=== PATIENT | male | born 1925 | race Caucasian/White ===

== ENCOUNTER 2016-05-14 09:29 | Emergency (ER) | payer MEDICARE ==
[~2016-05-14 09:29] MED LIST: Sodium Chloride 0.9% 1,000 ML BAG ONE; Sodium Chloride 0.9% 100 ML BAG ONE
[2016-05-14] MEDS ORDERED: Ondansetron HCl/PF 4 MG/2 ML Vial ONE (09:46)
[2016-05-14] MEDS ORDERED: Pantoprazole 40 MG VIAL ONE (10:29)
[2016-05-14 10:33] LABS: #Lymphocytes 0.9 thou/uL (1.20-3.40); #Monocytes 0.7 thou/uL (0.11-0.59); #Neutrophils 11.9 thou/uL (1.40-6.50); %Basophils 0.3 % (0.0-1.0); %Eosinophils 0.1 % (0.0-10.0); %Lymphocytes 6.6 % (21.0-51.0); %Monocytes 5.3 % (0.0-10.0); %Neutrophils 87.8 % (42.0-75.0); Hemoglobin 10.7 g/dL (14.0-18.0); Mean Corpuscular Hemoglobin 31.5 pg (27.0-31.0); Mean Corpuscular Volume 92.5 fl (80.0-94.0); Mean Platelet Volume 6.1 fL (7.4-10.4); Platelet Count 271 thou/uL (130-400); RBC Distribution Width 13.2 % (11.5-14.5); Red Blood Cell (RBC) Count 3.39 mill/uL (4.70-6.10); White Blood Cell (WBC) Count 13.5 thou/uL (4.8-10.8)
[2016-05-14 10:52] LABS: CKMB 0.4 ng/mL (0-6.6); Troponin I 0.012 ng/mL (< 0.028)
[2016-05-14 10:52] LABS: INR-International Normal Ratio 1.4; Prothrombin Time 17.3 SEC (12.0-14.7)
[2016-05-14 10:52] LABS: ALT (SGPT) 20 U/L (0-55); AST (SGOT) 24 U/L (5-34); Albumin 2.9 g/dL (3.4-4.8); Alkaline Phosphatase 44 U/L (40-150); Anion Gap 19 mmol/L (10-20); BUN (Urea Nitrogen) 87 mg/dL (8.4-25.7); Bilirubin, Total 0.6 mg/dL (0.2-1.2); Calc. Creatinine Clearance 0 mL/min (70-130); Calcium 9.4 mg/dL (7.8-10.44); Carbon Dioxide 27 mmol/L (23-31); Chloride 104 mmol/L (98-107); Estimated GFR-MDRD 50; Globulin 2.4 g/dL (2.4-3.5); Potassium 4.4 mmol/L (3.5-5.1); Protein, Total 5.3 g/dL (5.8-8.1); Sodium 146 mmol/L (136-145)
[2016-05-14 10:53] LABS: Glucose 161 mg/dL (83-110)
[2016-05-14 11:13] LABS: PTT 24.1 SEC (22.9-36.1)
--- NOTE | 2016-05-14 11:13 | RAD ---
PORTABLE UPRIGHT FRONTAL CHEST RADIOGRAPH 2 VIEWS OF THE ABDOMEN: Date: 05/14/16 COMPARISON: Two views of the chest dated 01/26/07 and KUB dated 04/23/16. HISTORY: Unable to stand, weakness, nausea and vomiting. FINDINGS: There is mild gaseous distention of the stomach on supine imaging with an air fluid level noted on t he upright view. Radiopaque material overlies the abdomen, suggesting prior hernia repair. Clips in the right upper quadrant noted suggesting prior cholecystectomy. The bowel gas pattern appears nonob structed. There does appear to be a significant amount of stool within the colon, particularly in t he descending colon and rectal region. There is atherosclerotic calcification of the abdominal aorta and its branches. Frontal radiograph chest demonstrates a curved area of hazy increased density in the right perihilar region and the right infrahilar region, which appears similar when compared to 01/26/07 examination . There is prominent medial pleural calcification within the right base. There is increased linear density laterally within the mid right lung zone, stable. Small bilateral pleural effusions are suspected. There is a rounded area of radiodensity overlying the inferior tip of the scapula on the right, probably representing pleural fluid within the fissure. IMPRESSION: 1. Probable small bilateral pleural effusions. This could be better evaluated with PA and lateral c hest imaging. 2. Mild distention of the stomach with an air fluid level seen on upright imaging. 3. No free intraperitoneal air. 4. No evidence for small bowel obstruction. Significant stool within the colon. POS: [facility]
[2016-05-14 11:36] LABS: Bilirubin Negative (Negative); Blood, Urine Trace (Negative); Glucose, Urine (Dipstick) Negative (Negative); Leukocyte Small (Negative); Nitrite Negative (Negative); Protein, Urine (Dipstick) Negative (Neg-Trace); Urobilinogen 0.2 mg/dL (0.2-1.0); pH, Urine 5.5 (5.0-9.0)
[2016-05-14 11:37] LABS: Clarity Hazy (Clear)
[2016-05-14 11:38] LABS: Bacteria/HPF 1+ HPF (None Seen); RBC/HPF 0-3 HPF (0-3); Yeast-All Forms 1+ HPF (None Seen)
--- NOTE | 2016-05-14 11:46 | RAD ---
1 VIEW CHEST: Date: 05/14/16 COMPARISON: 04/19/16. HISTORY: NG tube placement. FINDINGS: Suboptimal evaluation of lung parenchyma due to overpenetration. Chronic changes are suspected. Eval uation for pneumothorax and pleural effusion is limited. There is atherosclerosis of the aorta. Enla rged cardiac silhouette. There appears to be a nasogastric tube which extends beyond the diaphragm. Distal tip is presumed to be in the left upper quadrant, though it cannot be adequately assessed. IMPRESSION: Limited evaluation as above. Nasogastric tube does extend beyond the diaphragm. POS: [facility]
--- NOTE | 2016-05-14 12:13 | ERRECORD ---
[facility] EMERGENCY RECORD HPI NAUSEA/VOMITING/DIARRHEA (09:47 LHOD) CHIEF COMPLAINT: Patient presents for evaluation of nausea, Patient presents for evaluation of vomiting. HISTORIAN: Additional history obtained from shelter, Additional history obtained from EMS. TIME COURSE: PER REVIEW OF RECORDS, PT IN MID TO LATE April, HAD A SMALL BOWEL OBSTRUCTION WHICH RESOLVED WITH CONSERVATIVE MANAGEMENT. YESTERDAY ONSET OF VOMITING AGAIN. TODAY COFFEE GROUND / DARK MATERIAL. PT REPORTEDLY HAS ALSO RECENTLY BEEN ON LEVAQUIN FOR 2 WEEKS FOR PROSTATIS. ROS (09:49 LHOD) CONSTITUTIONAL: Historian denies fever. CARDIOVASCULAR: Historian denies chest pain. RESPIRATORY: Historian denies cough, denies shortness of breath. GI: Historian reports abdominal pain, reports appetite changes, reports vomiting. GENITOURINARY MALE: HX OF URINARY CATHS, BUT RECORDS SUGGEST THEY ARE TRYING SPONTANEOUS URINATION. SKIN: PERINEAL RASH. NEUROLOGIC: HEARING IMPAIRED WITH HEARING AIDS. NO FOCAL WEAKNESS. FULL ORIENTATION NOT TESTED YET. HEMO/LYMPHATIC: Historian reports easy bruising, HX OF TAKING ELIQUIS FOR AFIB. NOTES: All systems reviewed, negative except as described above. PAST MEDICAL HISTORY MEDICAL HISTORY: Notes: unk on immunizations, Notes: colon cancer in the prostate cancer in the hypotension, hypothryoid, Past medical history includes neurological disease, ischemic cerebral vascular accident, TIA 2007. 05/14/16. (10:08 ER) MALE SURGICAL HISTORY: COLON RESECTION BOWEL OBSTRUCTION, Surgical history of appendectomy, Surgical history of cholecystectomy. colon resection, bowel obstruction,, Surgical history of appendectomy, Surgical history of cholecystectomy. 05/14/16. (10:08 ER) PSYCHIATRIC HISTORY: No previous psychiatric history. (10:08 ER) SOCIAL HISTORY: Patient has no smoking history, Patient denies alcohol use, Patient denies drug use, Lives at home, alone. Patient denies alcohol use, Patient denies drug use, Patient has no smoking history. (10:08 ER) NOTES: Nursing records reviewed, ID RESIDENT, 2015 SEEN IN [facility] FOR SMALL BOWEL OBSTRUCTION, AFIB, PROSTATIS. (09:54 LHOD) KNOWN ALLERGIES Penicillins CURRENT MEDICATIONS &a-1R&a+25V*p+0X*[id number]*c202B*c15G*c2P*p-0X&a-25V&a+1R Name: Morgan Gage : 1925 M89 MedRec: [id number] AcctNum: [id number] Prepared: Verito May 14, 2016 12:23 by Interface Page 1 of 4 pMD [facility] EMERGENCY RECORD simvastatin: TABLET : Strength - 20 mg : ORAL Patient Dose: once a day (at bedtime). (10:27 ER) isosorbide mononitrate: TABLET : Strength - 10 mg : ORAL Patient Dose: 15 mg once a day (in the morning). (10: ER) levothyroxine: TABLET : Strength - 50 mcg : ORAL Patient Dose: once a day (in the morning). (10: ER) Aspir-81: TABLET, DELAYED RELEASE (ENTERIC COATED) : Strength - 81 mg : ORAL Patient Dose: Unknown. (: ER) multivitamin: TABLET : ORAL Patient Dose: 1 tab(s) Oral once a day. (: ER) Avodart: CAPSULE : Strength - 0.5 mg : ORAL Patient Dose: 1 cap(s) Oral once a day (at bedtime). (10:28 ER) Lasix: TABLET : Strength - 40 mg : ORAL Patient Dose: 1 tab(s) Oral once a day. (11:10 ER) Levaquin: TABLET : Strength - 500 mg : ORAL Patient Dose: 1 tab(s) Oral once a day. (11:10 ER) Miralax: POWDER (GRAM) : Strength - 17 gram/dose : ORAL Patient Dose: 1 cap(s) Oral. (11:11 ER) potassium chloride: TABLET, EXTENDED RELEASE : Strength - 10 mEq : ORAL Patient Dose: 1 tab(s) Oral once a day. (11:12 ER) tamsulosin: CAPSULE, EXT RELEASE 24 HR : Strength - 0.4 mg : ORAL Patient Dose: 1 cap(s) Oral once a day (at bedtime). (11:13 ER) Eliquis: TABLET : Strength - 2.5 mg : ORAL Patient Dose: 1 tab(s) Oral 2 times a day. (11:13 ER) Refresh Eye Itch Relief: DROPS : Strength - 0.025 % : OPHTHALMIC Patient Dose: 1 Drps Eyes Both 2 times a day. (11:14 ER) VITAL SIGNS VITAL SIGNS: BP: 105/52, Pulse: 83 (Irregular), Resp: 20, Time: 05/14/2016 10:00. (10:00 ER) BP: 107/72, Pulse: 140 (Irregular), Resp: 20, Temp: 98.4 (Rectal), Pain: 0, Time: 05/14/2016 09:39. (09:39 ER) BP: 120/89, Pulse: 106, Resp: 20, Pain: 0, O2 sat: 94 on 3L Oxygen, Time: 05/14/2016 11:00. (11:00 ER) BP: 109/55, Pulse: 106, Resp: 20, Pain: 0, O2 sat: 94 on 3L Oxygen, Time: &a-1R&a+25V*p+0X*[id number]*c202B*c15G*c2P*p-0X&a-25V&a+1R Name: Morgan Gage : 1925 M89 MedRec: [id number] AcctNum: [id number] Prepared: Verito May 14, 2016 12:23 by Interface Page 2 of 4 pMD [facility] EMERGENCY RECORD 05/14/2016 10:21. (10:21 ER) BP: 118/61, Pulse: 91, Resp: 20, Pain: 0, O2 sat: 94 on 2L Oxygen, Time: 05/14/2016 11:16. (11:16 ER) BP: 99/57, Pulse: 98, Resp: 20, Temp: 97. (Tympanic), Pain: 0, O2 sat: 94 on 2L Oxygen, Time: 05/14/2016 11:38. (11:38 ER) PHYSICAL EXAM (09:52 LHOD) CONSTITUTIONAL: Vital signs reviewed, Patient afebrile, Pulse, tachycardic, Blood pressure normal, Respiratory rate normal, AWAKE, ALERT, C/O BEING COLD. HEAD: Head exam included findings of head atraumatic. EYES: Pupils equally round and reactive to light, Extraocular muscles intact. ENT: Teeth with, EDENTULOUS, DARK MATERIAL ON CHIN. RESPIRATORY CHEST: Respiratory exam included findings of no respiratory distress, Breath sounds clear. CARDIOVASCULAR: Cardiovascular exam included findings of, rate tachycardic, rhythm irregularly irregular, DISTANT HEART SOUNDS. ABDOMEN MALE: Abdominal exam included findings of abdomen tender, diffusely, moderate intensity, Bowel sounds, absent, Distension present, MILD DISTENTION, PASSING SOFT BROWN STOOL, GUAIAC NEGATIVE. BACK: Back exam normal. UPPER EXTREMITY: Upper extremity exam normal. LOWER EXTREMITY: Lower extremity exam normal. NEURO: AWAKE, ALERT. SKIN: ERYTHEMATOUS / CHAFFING OF PERINEUM. EKG INTERPRETATION (09:59 LHOD) 12 LEAD EKG INTERPRETATION: 12 lead EKG interpreted by Emergency Department Physician at time of study, 12 lead EKG shows, atrial fibrillation with rapid ventricular response, Rate (beats per minute): 147, with no ectopics, T waves, flattened, DIFFUSE FLATTENING OF T WAVE WITH NON-SPEC ST, [place] normal. RADIOLOGYINTERPRETATION (10:23 LHOD) ABDOMEN: Obstructive series films show, Other findings: RIGHT PERIHILAR MASS APPEARS LARGER THAN DEC., AIRFLUID LEVELS UPPER BOWEL., RADIOLOGY READING DOES NOT SUGGEST THEY BELIEVE INCREASED SIZE OF RIGHT PERIHILUM. MEDICATION ADMINISTRATION SUMMARY Drug Name: Fortaz intravenous, Dose Ordered: 2 g, Route: IV Piggy Back, Status: Canceled, Time: 11:25 05/14/2016, Drug Name: *Normal Saline, Dose Ordered: 300 mL, Route: IV Fluid &a-1R&a+25V*p+0X*[id number]*c202B*c15G*c2P*p-0X&a-25V&a+1R Name: Morgan Gage : 1925 M89 MedRec: [id number] AcctNum: [id number] Prepared: [facility] May 14, 2016 12:23 by Interface Page 3 of 4 pMD [facility] EMERGENCY RECORD Infusion, Status: Ordered, Time: 11:00 05/14/2016, Drug Name: *Normal Saline, Dose Ordered: 300 mL, Route: IV Fluid Infusion, Status: Given, Time: 10:37 05/14/2016, Drug Name: Protonix intravenous, Dose Ordered: 40 mg, Route: IV Push, Status: Given, Time: 10:34 05/14/2016, Drug Name: diltiazem intravenous, Dose Ordered: 10 mg, Route: IV Push, Status: Given, Time: 10:00 05/14/2016, Drug Name: Zofran intravenous, Dose Ordered: 8 mg, Route: IV Push, Status: Given, Time: 09:55 05/14/2016, Drug Name: *Normal Saline, Dose Ordered: 300 mL, Route: IV Fluid Infusion, Status: Given, Time: 09:50 05/14/2016, *Additional information available in notes, Detailed record available in Medication Service section. DOCTOR NOTES (11:19 LHOD) TEXT: FAMILY REQUEST AT [facility]---CONSULTANTS DR. VALENTIN AND . PROBLEM LIST No recorded problems DIAGNOSIS (11:23 LHOD) FINAL: PRIMARY: UPPER GI BLEED WITH ANEMIA, ADDITIONAL: ATRIAL FIBRILLATION, Lactic acidosis, RENAL INSUFFICIENCY. PRESCRIPTION No recorded prescriptions DISPOSITION PATIENT: Disposition Type: Transfer, Disposition: Transfer to [facility], Condition: Good. (11:12 LHOD) Patient left the department. (12:07 ER) [place]: ER=Marycarmen Moore LHOD=MD Danae, Sherif &a-1R&a+25V*p+0X*r1942P*c202B*c15G*c2P*p-0X&a-25V&a+1R Name: Morgan Gage : 1925 M89 MedRec: [id number] AcctNum: [id number] Prepared: Verito May 14, 2016 12:23 by Interface Page 4 of 4 pMD MTDD
--- NOTE | 2016-05-14 12:19 | PICIS ---
[facility] EMERGENCY RECORD COMMUNICATIONS (10:56 LHOD) COMMUNICATIONS: Notes: 1055--FAMILY REQUEST AND OF [facility]. 1110---DISCUSSED WITH DR. POND, [facility] EDMD, ACCEPTS FOR TRANSFER. TRIAGE (09:38 ER) TRIAGE NOTES: vomiting, coffee brown emesis, since yesterday, from care center. (09:38 ER) PATIENT: NAME: Morgan Gage, AGE: 89, GENDER: male, : [id number], TIME OF GREET: WedMay 14, 2016 09:30, PREFERRED LANGUAGE: Greenlandic, ETHNICITY: Not or , ECODE BILLING MAP: [facility], SSN: [id number], Zip Code: [address], KG WEIGHT: 62.60, PHONE: , , , PERSON ID: [id number], PCP: Mirian WHITLOCK AUBREY. (09:38 ER) COMPLAINT: WEAKNESS. (09:38 ER) ADMISSION: URGENCY: 2 Emergent, ADMISSION SOURCE: [facility], TRANSPORT: AMBULANCE - [facility], BED: TRIAGE. (09:38 ER) SIRS SCORING: Heart Rate 140-179 (3), Temp range 96.8-101.1 (0), respiratory rate 12-24 (0), Mental Status altered: no (0). (10:08 ER) TRIAGE SCREENING: Patient denies suicidal ideation, Patient denies presence of domestic violence. (10:08 ER) PROVIDERS: TRIAGE NURSE: Marycarmen Moore. (:38 ER) PREVIOUS VISIT ALLERGIES: Penicillins. (09:38 ER) Penicillins. (10:08 ER) KNOWN ALLERGIES Penicillins CURRENT MEDICATIONS simvastatin: TABLET : Strength - 20 mg : ORAL Patient Dose: once a day (at bedtime). (10:27 ER) isosorbide mononitrate: TABLET : Strength - 10 mg : ORAL Patient Dose: 15 mg once a day (in the morning). (10:27 ER) levothyroxine: TABLET : Strength - 50 mcg : ORAL Patient Dose: once a day (in the morning). (10:27 ER) Aspir-81: TABLET, DELAYED RELEASE (ENTERIC COATED) : Strength - 81 mg : ORAL Patient Dose: Unknown. (10:27 ER) multivitamin: TABLET : ORAL Patient Dose: 1 tab(s) Oral once a day. (10:27 ER) Avodart: CAPSULE : Strength - 0.5 mg : ORAL Patient Dose: 1 cap(s) Oral once a day (at bedtime). (10:28 ER) &a-1R&a+25V*p+0X*g4107I*c202B*c15G*c2P*p-0X&a-25V&a+1R Name: Morgan Gage : 1925 M89 MedRec: [id number] AcctNum: [id number] Prepared: Verito May 14, 2016 12:28 by Interface Page 1 of 15 pMD [facility] EM[facility]GENCY RECORD Lasix: TABLET : Strength - 40 mg : ORAL Patient Dose: 1 tab(s) Oral once a day. (11:10 ER) Levaquin: TABLET : Strength - 500 mg : ORAL Patient Dose: 1 tab(s) Oral once a day. (11:10 ER) Miralax: POWDER (GRAM) : Strength - 17 gram/dose : ORAL Patient Dose: 1 cap(s) Oral. (11:11 ER) potassium chloride: TABLET, EXTENDED RELEASE : Strength - 10 mEq : ORAL Patient Dose: 1 tab(s) Oral once a day. (11:12 ER) tamsulosin: CAPSULE, EXT RELEASE 24 HR : Strength - 0.4 mg : ORAL Patient Dose: 1 cap(s) Oral once a day (at bedtime). (11:13 ER) Eliquis: TABLET : Strength - 2.5 mg : ORAL Patient Dose: 1 tab(s) Oral 2 times a day. (11:13 ER) Refresh Eye Itch Relief: DROPS : Strength - 0.025 % : OPHTHALMIC Patient Dose: 1 Drps Eyes Both 2 times a day. (11:14 ER) VITAL SIGNS VITAL SIGNS: BP: 105/52, Pulse: 83 (Irregular), Resp: 20, Time: 05/14/2016 10:00. (10:00 ER) BP: 107/72, Pulse: 140 (Irregular), Resp: 20, Temp: 98.4 (Rectal), Pain: 0, Time: 05/14/2016 09:39. (09:39 ER) BP: 120/89, Pulse: 106, Resp: 20, Pain: 0, O2 sat: 94 on 3L Oxygen, Time: 05/14/2016 11:00. (11:00 ER) BP: 109/55, Pulse: 106, Resp: 20, Pain: 0, O2 sat: 94 on 3L Oxygen, Time: 05/14/2016 10:21. (10:21 ER) BP: 118/61, Pulse: 91, Resp: 20, Pain: 0, O2 sat: 94 on 2L Oxygen, Time: 05/14/2016 11:16. (11:16 ER) BP: 99/57, Pulse: 98, Resp: 20, Temp: 97. (Tympanic), Pain: 0, O2 sat: 94 on 2L Oxygen, Time: 05/14/2016 11:38. (11:38 ER) NURSING ASSESSMENT: ABDOMEN (10:10 ER) CONSTITUTIONAL: Patient arrives, via [facility], History obtained from, alf record, CALLED AND SPOKE WITH PRISON, Patient appears comfortable, Patient cooperative, Patient alert, Oriented to person, place and time, Skin warm, Skin dry, Skin normal in color, Patient complains of VOMITING, NONE AT THIS TIME, PER PRISON STAFF, PT VOMITING SINCE LAST NIGHT , 3 TIMES THIS MORNING, PT HAS DRIED BROWN EMESIS ON LIPS. PAIN: Patient rates pain as 0 out of 10. ABDOMEN: Abdomen assessment findings include abdomen symmetrical, Abdomen soft, tender, to the left upper quadrant, Associated with nausea, Associated with vomiting, &a-1R&a+25V*p+0X*g8997V*c202B*c15G*c2P*p-0X&a-25V&a+1R Name: Morgan Gage : 1925 M89 MedRec: [id number] AcctNum: [id number] Prepared: Verito May 14, 2016 12:28 by Interface Page 2 of 15 pMD [facility] EM[facility]GENCY RECORD history of vomiting, having coffee ground emesis, no associated diarrhea, no associated constipation, Date of last bowel movement: TODAY, DURING RECTAL TEMP. SAFETY: Side rails up, Cart/Stretcher in lowest position, Call light within reach, Hospital ID band on. NURSING ASSESSMENT: FALL RISK (10:14 ER) FALL RISK: Use of level of consciousness altering agents with mentation or cognitive changes (3), Sensory deficits (1), Impaired mobility (3), Total score 7, Notes: PT IS WEAK FROM VOMITING. [place] II FALL RISK: altered elimination(1), male(1), Total score 2. NURSING ASSESSMENT: SKIN (10:14 ER) SKIN: Skin assessment findings include skin warm, Skin dry, Skin normal in color, Notes: PT HAS BLANCHABLE REDNESS TO SACRUM AREA WITH 1/2INCH BREAKDOWN ON THE LEFT INNER BUTTOCKS. SAFETY: Side rails up, Cart/Stretcher in lowest position, Call light within reach, Hospital ID band on. NURSING PROCEDURE: BEDSIDE RADIOLOGY (11:35 ER) PATIENT IDENTIFIER: Patient actively involved in identification process. BEDSIDE RADIOLOGY: Portable chest x-ray performed. NURSING PROCEDURE: BEDSIDE SIRS TESTING (11:15 ER) SCORES: Heart Rate 55-109 (0), Temp range 96.8-101.1 (0), respiratory rate 12-24 (0), Latest WBC 3-14.9 (0), Mental Status altered: no (0). NURSING PROCEDURE: ASSISTANT FAMILY TEACHER (09:42 ER) PATIENT IDENTIFIER: Patient actively involved in identification process, Patient's identity verified by patient stating name, Patient's identity verified by patient stating date. ASSISTANT FAMILY TEACHER: Cardiac monitoring indicated for vomitimg, afib, Patient placed on monitoring and evaluation advisor, Heart rate: 150, showing atrial fibrillation, Patient placed on non-invasive blood pressure monitor, Patient placed on continuous pulse oximetry. NURSING PROCEDURE: EKG CHART (09:54 ER) PATIENT IDENTIFIER: Patient actively involved in identification process, Patient's identity verified by patient stating name, Patient's identity verified by patient stating date. EKG: EKG indicated for complaint of an irregular heart beat, 12 lead EKG performed on the left chest, done by SAL FAJARDO. NURSING PROCEDURE: GASTRIC TUBE (11:31 ER) PATIENT IDENTIFIER: Patient actively involved in identification process, Patient's identity verified by patient stating name, &a-1R&a+25V*p+0X*x4767T*c202B*c15G*c2P*p-0X&a-25V&a+1R Name: Morgan Gage : 1925 M89 MedRec: [id number] AcctNum: [id number] Prepared: Verito May 14, 2016 12:28 by Interface Page 3 of 15 pMD [facility] EM[facility]GENCY RECORD Patient's identity verified by patient stating date. GASTRIC TUBE: Gastric tube indicated for possible gastrointestinal bleed, 14fr gastric tube inserted, Gastric tube to low intermittent suction, Notes: xray ordered for placement, + gargling heard the stethoscope, and brown emesis out put. NURSING PROCEDURE: IV (09:50 ER) PATIENT IDENITIFIER: Patient actively involved in identification process, Patient's identity verified by patient stating name, Patient's identity verified by patient stating date. IV SITE 1: IV therapy indicated for medication administration, IV established, to the right antecubital, using a 20 gauge catheter, in one attempt, Saline lock established, Labs drawn at time of placement, labeled in the presence of the patient and sent to lab, Notes: saline lock by BRIAN FAJARDO HOUSESUPERVISOR. SAFETY: Side rails up, Cart/Stretcher in lowest position, Call light within reach, Hospital ID band on. NURSING PROCEDURE: NURSE NOTES NURSES NOTES: Notes: ems at bedside. (11:24 ER) Notes: pt out the door, to [facility], PT A/OX4, NO COMPLAINTS OF PAIN, NG TUBE CLAMPED, BETTS CATHETER EMPTIED. FAMILY AT BEDSIDE,. (11:47 ER) Notes: REPORT TO RICHARDSON RN. (12:06 ER) NURSING PROCEDURE: TRANSFER (11:10 ER) TRANSFER: Reason for transfer need for specialized care, Diagnosis: UPPER GI BLEED, Accepting institution: [facility], Accepting physician: SALTY, Referring physician: GASTON, Transported by urgent ambulance, Patient consent for transfer signed, Family member contacted, SON ELIZABETH AND DAUGHTER, Notes: FAMILY CONSENTED FOR TRANSFER. BELONGINGS: Belongings remain with patient, Valuables remain with patient. SAFETY: Side rails up, Cart/Stretcher in lowest position, Family at bedside, Call light within reach, Hospital ID band on. NURSING PROCEDURE: TRANSPORT TO TESTS PATIENT IDENTIFIER: Patient actively involved in identification process, Patient's identity verified by patient stating name, Patient's identity verified by patient stating date. (10:03 ER) TRANSPORT TO TESTS: Patient transported to x-ray, via cart, Accompanied by x-ray furniture repair technician. (10:03 ER) FOLLOW-UP: After procedure, patient returned to emergency department. (10:18 ER) NURSING PROCEDURE: URINE COLLECTION PATIENT IDENTIFIER: Patient actively involved in identification process, Patient's identity verified by patient stating name, Patient's identity verified by patient stating date. (11:00 ER) &a-1R&a+25V*p+0X*e2676F*c202B*c15G*c2P*p-0X&a-25V&a+1R Name: Morgan Gage : 1925 M89 MedRec: [id number] AcctNum: [id number] Prepared: [facility] May 14, 2016 12:28 by Interface Page 4 of 15 pMD [facility] EM[facility]GENCY RECORD URINE COLLECTION MALE: Coude catheter inserted, using a 14 fr coude catheter, in two attempts, output amount (mL) 100ml, urine hernán in color. (11:00 ER) FOLLOW UP: Total output (ml) 550, Total urine output (ml) 560. (11:45 ER) SAFETY: Side rails up, Cart/Stretcher in lowest position, Family at bedside, Call light within reach, Hospital ID band on. (11:00 ER) Side rails up, Cart/Stretcher in lowest position, Family at bedside, Call light within reach, Hospital ID band on. (11:45 ER) ORDER DETAILS Order Name: ASSISTANT FAMILY TEACHER ED, Status: Done, Time: 09:42 05/14/2016, User: ER, - Ordered for: MD Fink Lefayne, - Entered by: MD Fink Lefayne - [facility] May 14, 2016 09:41, - Quantity: 1, Order Name: Cardiac Profile w/CKMB & Troponin - I, Status: Active, Time: 10:12 05/14/2016, User: JOVAN, - Ordered for: MD Fink Lefayne, - Entered by: MD Fink Lefayne - [facility] May 14, 2016 10:12, - Quantity: 1, Order Name: CBC with Differential, Status: Active, Time: 09:41 05/14/2016, User: JOVAN, - Ordered for: MD Fink Lefayne, - Entered by: MD Fink Lefayne - [facility] May 14, 2016 09:41, - Quantity: 1, Order Name: Comprehensive Metabolic Panel, Status: Active, Time: 09:41 05/14/2016, User: JOVAN, - Ordered for: MD Fink Lefayne, - Entered by: MD Fink Lefayne - [facility] May 14, 2016 09:41, - Quantity: 1, Order Name: Culture, Blood, Status: Active, Time: 10:51 05/14/2016, User: JOVAN, - Ordered for: MD Fink Lefayne, - Entered by: MD Fink Lefayne - [facility] May 14, 2016 10:51, - Quantity: 1, Order Name: Culture, Urine, Status: Active, Time: 11:46 05/14/2016, User: JOVAN, - Ordered for: MD Fink Lefayne, - Entered by: MD Fink Lefayne - [facility] May 14, 2016 11:46, - Quantity: 1, Order Name: EKG 12 Lead in Emergency Room, Status: Active, Time: 09:41 05/14/2016, User: JOVAN, - Ordered for: MD Fink Lefayne, - Entered by: MD Fink Lefayne - [facility] May 14, 2016 09:41, - Quantity: 1, Order Name: BETTS CATHETER ED, Status: Done, Time: 10:59 05/14/2016, User: ER, - Ordered for: MD Fink Lefayne, &a-1R&a+25V*p+0X*o8468Z*c202B*c15G*c2P*p-0X&a-25V&a+1R Name: Morgan Gage : 1925 M89 MedRec: [id number] AcctNum: [id number] Prepared: WedMay 14, 2016 12:28 by Interface Page 5 of 15 pMD [facility] EM[facility]GENCY RECORD - Entered by: MD Fink Lefayne - [facility] May 14, 2016 09:41, - Quantity: 1, Order Name: Lactic Acid, Status: Active, Time: 09:42 05/14/2016, User: JOVAN, - Ordered for: MD Fink Lefayne, - Entered by: MD Fink Lefayne - [facility] May 14, 2016 09:42, - Quantity: 1, Order Name: NG TUBE PLACEMENT ED, Status: Done, Time: 11:30 05/14/2016, User: ER, - Ordered for: MD Fink Lefayne, - Entered by: MD Fink Lefayne - [facility] May 14, 2016 11:01, - Quantity: 1, Order Name: Protime with INR, Status: Active, Time: 10:40 05/14/2016, User: JOVAN, - Ordered for: MD Fink Lefayne, - Entered by: MD Fink Lefayne - [facility] May 14, 2016 10:40, - Quantity: 1, Order Name: PTT, Status: Active, Time: 10:40 05/14/2016, User: JOVAN, - Ordered for: MD Fink Lefayne, - Entered by: MD Fink Lefayne - [facility] May 14, 2016 10:40, - Quantity: 1, Order Name: SALINE LOCK, Status: Done, Time: 10:08 05/14/2016, User: ER, - Ordered for: MD Fink Lefayne, - Entered by: MD Fink Lefayne [facility] May 14, 2016 09:41, - Quantity: 1, Order Name: Urinalysis w/ Rflx Microscopic, Status: Canceled, Time: 11:01 05/14/2016, User: ER, - Ordered for: MD Fink Lefayne, - Entered by: MD Fink Lefayne [facility] May 14, 2016 09:42, - Reason for Cancel: -- Reason --, - Quantity: 1, Order Name: Urinalysis w/ Rflx Microscopic, Status: Active, Time: 11:18 05/14/2016, User: JOVAN, - Ordered for: MD Fink Lefayne, - Entered by: MD Fink Lefayne - [facility] May 14, 2016 11:18, - Quantity: 1, Order Name: XR Abdomen 2 View/1 View Cxr, Status: Active, Time: 09:44 05/14/2016, User: LHOD, - Ordered for: MD Fink Lefayne, - Entered by: MD Fink Lefayne - [facility] May 14, 2016 09:44, - Quantity: 1, Order Name: XR Chest 1 View Portable, Status: Active, Time: 11:30 05/14/2016, User: JOVAN, - Ordered for: MD Fink Lefayne, - Entered by: MD Fink Lefayne - [facility] May 14, 2016 11:30, - Quantity: 1. MEDICATION ADMINISTRATION SUMMARY &a-1R&a+25V*p+0X*z2424S*c202B*c15G*c2P*p-0X&a-25V&a+1R Name: Morgan Gage : 1925 M89 MedRec: [id number] AcctNum: [id number] Prepared: [facility] May 14, 2016 12:28 by Interface Page 6 of 15 pMD [facility] EM[facility]GENCY RECORD Drug Name: Fortaz intravenous, Dose Ordered: 2 g, Route: IV Piggy Back, Status: Canceled, Time: 11:25 05/14/2016, Drug Name: *Normal Saline, Dose Ordered: 300 mL, Route: IV Fluid Infusion, Status: Ordered, Time: 11:00 05/14/2016, Drug Name: *Normal Saline, Dose Ordered: 300 mL, Route: IV Fluid Infusion, Status: Given, Time: 10:37 05/14/2016, Drug Name: Protonix intravenous, Dose Ordered: 40 mg, Route: IV Push, Status: Given, Time: 10:34 05/14/2016, Drug Name: diltiazem intravenous, Dose Ordered: 10 mg, Route: IV Push, Status: Given, Time: 10:00 05/14/2016, Drug Name: Zofran intravenous, Dose Ordered: 8 mg, Route: IV Push, Status: Given, Time: 09:55 05/14/2016, Drug Name: *Normal Saline, Dose Ordered: 300 mL, Route: IV Fluid Infusion, Status: Given, Time: 09:50 05/14/2016, *Additional information available in notes, Detailed record available in Medication Service section. MEDICATION SERVICE diltiazem intravenous: Order: diltiazem intravenous (diltiazem HCl) - Dose: 10 mg : IV Push Ordered by: Sherif Fink MD Entered by: Sherif Fink MD [facility] May 14, 2016 09:43 , Acknowledged by: Marycarmen Moore [facility] May 14, 2016 09:43 Documented as given by: Marycarmen Moore [facility] May 14, 2016 10:00 Patient, Medication, Dose, Route and Time verified prior to administration. Amount given: 10mg, IV SITE #1 IVP, initial medication, Slowly, Pre-administration assessment shows Patient on monitoring and evaluation advisor showing atrial fibrillation, Awake and alert- acceptable, Catheter placement confirmed via flush prior to administration, IV site without signs or symptoms of infiltration during medication administration, No swelling during administration, No drainage during administration, IV flushed after administration, Correct patient, time, route, dose and medication confirmed prior to administration, Patient advised of actions and side-effects prior to administration, Allergies confirmed and medications reviewed prior to administration. : Follow Up : Response assessment performed, No signs or symptoms of allergic reaction noted, Decreased symptoms, _IV SITE #1:_. (10:30 ER) Normal Saline: Order: Normal Saline (0.9 % sodium chloride) - Dose: 300 mL : IV Fluid Infusion Notes: BOLUS, THEN 150 ML/HR Ordered by: Sherif Fink MD Entered by: Sherif Fink MD [facility] May 14, 2016 09:40 , Acknowledged by: Marycarmen Moore [facility] May 14, 2016 09:43 Documented as given by: Marycarmen Moore [facility] May 14, 2016 09:50 Patient, Medication, Dose, Route and Time verified prior to administration. Amount given: 300ml, IV SITE #1 IV fluids established for hydration, IV SITE #1 1st bag hung, amount 500ml hung, IV SITE #1 bolus of 300 &a-1R&a+25V*p+0X*d1295M*c202B*c15G*c2P*p-0X&a-25V&a+1R Name: Morgan Gage [place] : 1925 M89 MedRec: [id number] AcctNum: [id number] Prepared: Verito May 14, 2016 12:28 by Interface Page 7 of 15 pMD [facility] EM[facility]GENCY RECORD ml established, via primary tubing, via gravity tubing, Catheter placement confirmed via flush prior to administration, IV site without signs or symptoms of infiltration during medication administration, No swelling during administration, No drainage during administration, IV flushed after administration, Correct patient, time, route, dose and medication confirmed prior to administration, Patient advised of actions and side-effects prior to administration, Allergies confirmed and medications reviewed prior to administration. : Follow Up : Response assessment performed, No signs or symptoms of allergic reaction noted, _IV SITE #1:_, Medication infusion discontinued, on Verito May 14, 2016 10:37, 50 minutes, ., Total amount infused: 300ml. (10:35 ER) Normal Saline: Order: Normal Saline (0.9 % sodium chloride) - Dose: 300 mL : IV Fluid Infusion Notes: REPEAT BOLUS, THEN 150 ML/HR Ordered by: Sherif Fink MD Entered by: Sherif Fink MD [facility] May 14, 2016 10:31 , Acknowledged by: Marycarmen Moore [facility] May 14, 2016 10:35 Documented as given by: Marycarmen Moore [facility] May 14, 2016 10:37 Patient, Medication, Dose, Route and Time verified prior to administration. Amount given: 300ML, IV SITE #1 IV fluids established for hydration, via primary tubing, via gravity tubing, Awake and alert- acceptable, Catheter placement confirmed via flush prior to administration, IV site without signs or symptoms of infiltration during medication administration, No swelling during administration, No drainage during administration, IV flushed after administration, Correct patient, time, route, dose and medication confirmed prior to administration, Patient advised of actions and side-effects prior to administration, Allergies confirmed and medications reviewed prior to administration, Patient in position of comfort, Side rails up, Cart in lowest position, Family at bedside. Normal Saline: Order: Normal Saline (0.9 % sodium chloride) - Dose: 300 mL : IV Fluid Infusion Notes: BOLUS REMAINDER OF LITER Ordered by: Sherif Fink MD Entered by: Sherif Fink MD [facility] May 14, 2016 11:00 , Acknowledged by: Marycarmen Moore [facility] May 14, 2016 11:02. Protonix intravenous: Order: Protonix intravenous (pantoprazole sodium) - Dose: 40 mg : IV Push Ordered by: Sherif Fink MD Entered by: Sherif Fink MD [facility] May 14, 2016 09:46 , Acknowledged by: Marycarmen Moore [facility] May 14, 2016 10:07 Documented as given by: Marycarmen Moore [facility] May 14, 2016 10:34 Patient, Medication, Dose, Route and Time verified prior to administration. Amount given: 40MG, IV SITE #1 IVPB or drip, initial infusion, IVPB mixed in: 100ml, Fluid: 0.9NS, Awake and alert- acceptable, Catheter placement confirmed via flush prior to administration, IV site without signs or symptoms of infiltration during medication &a-1R&a+25V*p+0X*s8193W*c202B*c15G*c2P*p-0X&a-25V&a+1R Name: Morgan Gage : 1925 M89 MedRec: [id number] AcctNum: [id number] Prepared: [facility] May 14, 2016 12:28 by Interface Page 8 of 15 pMD [facility] EM[facility]GENCY RECORD administration, No swelling during administration, No drainage during administration, IV flushed after administration, Correct patient, time, route, dose and medication confirmed prior to administration, Patient advised of actions and side-effects prior to administration, Allergies confirmed and medications reviewed prior to administration, Patient in position of comfort, Side rails up, Cart in lowest position, Family at bedside. : Follow Up : Response assessment performed, No signs or symptoms of allergic reaction noted. (11:00 ER) Zofran intravenous: Order: Zofran intravenous (ondansetron HCl) - Dose: 8 mg : IV Push Ordered by: Sherif Fink MD Entered by: Sherif Fink MD [facility] May 14, 2016 09:40 , Acknowledged by: Marycarmen Moore [facility] May 14, 2016 09:43 Documented as given by: Marycarmen Moore [facility] May 14, 2016 09:55 Patient, Medication, Dose, Route and Time verified prior to administration. Amount given: 8mg, IV SITE #1 IVP, initial medication, Slowly, Awake and alert- acceptable, Catheter placement confirmed via flush prior to administration, IV site without signs or symptoms of infiltration during medication administration, No swelling during administration, No drainage during administration, IV flushed after administration, Correct patient, time, route, dose and medication confirmed prior to administration, Patient advised of actions and side-effects prior to administration, Allergies confirmed and medications reviewed prior to administration. : Follow Up : Response assessment performed, No signs or symptoms of allergic reaction noted, Decreased nausea, _IV SITE #1:_. (11:00 ER) (CANCELED) Fortaz intravenous: Order: Fortaz intravenous (ceftazidime pentahydrate) - Dose: 2 g : IV Piggy Back POTENTIAL ALLERGY REACTION: 'Penicillins' - Benefits outweigh risks Ordered by: Sherif Fink MD Entered by: Sherif Fink MD [facility] May 14, 2016 11:02 , Acknowledged by: Marycarmen Moore [facility] May 14, 2016 11:02 Canceled by: Brian Mayen RN. [facility] May 14, 2016 11:25 Cancel reason: Change in medication plan:we do not carry this drug. Dr Fink requests to just let him wait until he gets to [place]... HPI NAUSEA/VOMITING/DIARRHEA (09:47 LHOD) CHIEF COMPLAINT: Patient presents for evaluation of nausea, Patient presents for evaluation of vomiting. HISTORIAN: Additional history obtained from alf, Additional history obtained from EMS. TIME COURSE: PER REVIEW OF RECORDS, PT IN MID TO LATE April, HAD A SMALL BOWEL OBSTRUCTION WHICH RESOLVED WITH CONSERVATIVE MANAGEMENT. YESTERDAY ONSET OF VOMITING AGAIN. TODAY COFFEE GROUND / DARK MATERIAL. PT REPORTEDLY HAS ALSO RECENTLY BEEN ON LEVAQUIN FOR 2 WEEKS FOR PROSTATIS. &a-1R&a+25V*p+0X*g2534V*c202B*c15G*c2P*p-0X&a-25V&a+1R Name: Morgan Gage : 1925 M89 MedRec: [id number] AcctNum: [id number] Prepared: Verito May 14, 2016 12:28 by Interface Page 9 of 15 pMD [facility] EMERGENCY RECORD ROS (09:49 LHOD) CONSTITUTIONAL: Historian denies fever. CARDIOVASCULAR: Historian denies chest pain. RESPIRATORY: Historian denies cough, denies shortness of breath. GI: Historian reports abdominal pain, reports appetite changes, reports vomiting. GENITOURINARY MALE: HX OF URINARY CATHS, BUT RECORDS SUGGEST THEY ARE TRYING SPONTANEOUS URINATION. SKIN: PERINEAL RASH. NEUROLOGIC: HEARING IMPAIRED WITH HEARING AIDS. NO FOCAL WEAKNESS. FULL ORIENTATION NOT TESTED YET. HEMO/LYMPHATIC: Historian reports easy bruising, HX OF TAKING ELIQUIS FOR AFIB. NOTES: All systems reviewed, negative except as described above. PAST MEDICAL HISTORY MEDICAL HISTORY: Notes: unk on immunizations, Notes: colon cancer in the prostate cancer in the hypotension, hypothryoid, Past medical history includes neurological disease, ischemic cerebral vascular accident, TIA 2007. 05/14/16. (10:08 ER) MALE SURGICAL HISTORY: COLON RESECTION BOWEL OBSTRUCTION, Surgical history of appendectomy, Surgical history of cholecystectomy. colon resection, bowel obstruction,, Surgical history of appendectomy, Surgical history of cholecystectomy. 05/14/16. (10:08 ER) PSYCHIATRIC HISTORY: No previous psychiatric history. (10:08 ER) SOCIAL HISTORY: Patient has no smoking history, Patient denies alcohol use, Patient denies drug use, Lives at home, alone. Patient denies alcohol use, Patient denies drug use, Patient has no smoking history. (10:08 ER) NOTES: Nursing records reviewed, [place] RESIDENT, 2015 SEEN IN [facility] FOR SMALL BOWEL OBSTRUCTION, AFIB, PROSTATIS. (09:54 LHOD) PHYSICAL EXAM (09:52 LHOD) CONSTITUTIONAL: Vital signs reviewed, Patient afebrile, Pulse, tachycardic, Blood pressure normal, Respiratory rate normal, AWAKE, ALERT, C/O BEING COLD. HEAD: Head exam included findings of head atraumatic. EYES: Pupils equally round and reactive to light, Extraocular muscles intact. ENT: Teeth with, EDENTULOUS, DARK MATERIAL ON CHIN. RESPIRATORY CHEST: Respiratory exam included findings of no respiratory distress, Breath sounds clear. CARDIOVASCULAR: Cardiovascular exam included findings of, rate tachycardic, rhythm irregularly irregular, DISTANT HEART SOUNDS. &a-1R&a+25V*p+0X*b4403E*c202B*c15G*c2P*p-0X&a-25V&a+1R Name: Morgan Gage : 1925 M89 MedRec: [id number] AcctNum: [id number] Prepared: [facility] May 14, 2016 12:28 by Interface Page 10 of 15 pMD [facility] EMERGENCY RECORD ABDOMEN MALE: Abdominal exam included findings of abdomen tender, diffusely, moderate intensity, Bowel sounds, absent, Distension present, MILD DISTENTION, PASSING SOFT BROWN STOOL, GUAIAC NEGATIVE. BACK: Back exam normal. UPPER EXTREMITY: Upper extremity exam normal. LOWER EXTREMITY: Lower extremity exam normal. NEURO: AWAKE, ALERT. SKIN: ERYTHEMATOUS / CHAFFING OF PERINEUM. LAB INTERPRETATION (10:39 LHOD) INTERPRETATION: I reviewed the lab results, CBC abnormal, White blood cell count elevated, Hemoglobin decreased, Hematocrit decreased, Chemistry abnormal, Glucose elevated, BUN elevated, Creatinine elevated, Lactate abnormal-elevated, elevated. EVENTS TRANSFER: Triage to Emergency Triage. (WedMay 14, 2016 09:38 ER) Emergency Triage to Main ED -01. (09:38 ER) Removed from Emergency Main ED -01. (12:07 ER) RADIOLOGYINTERPRETATION (10:23 LHOD) ABDOMEN: Obstructive series films show, Other findings: RIGHT PERIHILAR MASS APPEARS LARGER THAN DEC., AIRFLUID LEVELS UPPER BOWEL., RADIOLOGY READING DOES NOT SUGGEST THEY BELIEVE INCREASED SIZE OF RIGHT PERIHILUM. EKG INTERPRETATION (09:59 LHOD) 12 LEAD EKG INTERPRETATION: 12 lead EKG interpreted by Emergency Department Physician at time of study, 12 lead EKG shows, atrial fibrillation with rapid ventricular response, Rate (beats per minute): 147, with no ectopics, T waves, flattened, DIFFUSE FLATTENING OF T WAVE WITH NON-SPEC ST, [place] normal. DOCTOR NOTES (11:19 LHOD) TEXT: FAMILY REQUEST AT [facility]---CONSULTANTS DR. VALENTIN AND . PROBLEM LIST No recorded problems DIAGNOSIS (11:23 LHOD) FINAL: PRIMARY: UPPER GI BLEED WITH ANEMIA, ADDITIONAL: ATRIAL FIBRILLATION, Lactic acidosis, RENAL INSUFFICIENCY. &a-1R&a+25V*p+0X*[id number]*c202B*c15G*c2P*p-0X&a-25V&a+1R Name: Morgan Gage : 1925 M89 MedRec: [id number] AcctNum: [id number] Prepared: WedMay 14, 2016 12:28 by Interface Page 11 of 15 pMD [facility] EMERGENCY RECORD DISPOSITION PATIENT: Disposition Type: Transfer, Disposition: Transfer to [facility], Condition: Good. (11:12 LHOD) Patient left the department. (12:07 ER) PRESCRIPTION No recorded prescriptions IMAGING *EKG: Image captured from scanner. (11:02 AWAT) CONSENTS: Image captured from scanner. (11:16 AWAT) EMS TRANSPORT ORDERS: Image captured from scanner. (11:17 AWAT) *MEMORANDUM OF TRANSFER: Image captured from scanner. (11:17 AWAT) EMS REPORT CALL-IN: Image captured from scanner. (11:19 JPAR) ADVANCE DIRECTIVE FULLCODE: Image captured from scanner. (11:19 JPAR) EMS REPORT CALL-IN: Page 2 added. Image captured from scanner. (11:19 JPAR) [place] RECORD: Image captured from scanner. (11:20 JPAR) NH ORDERS: Image captured from scanner. (11:20 JPAR) Page 2 added. Image captured from scanner. (11:21 JPAR) Page 3 added. Image captured from scanner. (11:21 JPAR) SBAR COMM: Image captured from scanner. (11:21 JPAR) Page 2 added. Image captured from scanner. (11:21 JPAR) Page 3 added. Image captured from scanner. (11:21 JPAR) H&P: Image captured from scanner. (11:22 JPAR) Page 2 added. Image captured from scanner. (11:22 JPAR) Page 3 added. Image captured from scanner. (11:22 JPAR) Page 4 added. Image captured from scanner. (11:23 JPAR) LABS: Image captured from scanner. (11:23 JPAR) Page 2 added. Image captured from scanner. (11:23 JPAR) Page 3 added. Image captured from scanner. (11:23 JPAR) NH MARS: Image captured from scanner. (11:24 JPAR) Page 2 added. Image captured from scanner. (11:24 JPAR) Page 3 added. Image captured from scanner. (11:24 JPAR) Page 4 added. Image captured from scanner. (11:24 JPAR) Page 5 added. Image captured from scanner. (11:24 JPAR) Page 6 added. Image captured from scanner. (11:24 JPAR) Page 7 added. Image captured from scanner. (11:24 JPAR) Page 8 added. Image captured from scanner. (11:24 JPAR) Page 9 added. Image captured from scanner. (11:25 JPAR) TRANSFER WORKSHEET: Image captured from scanner. (11:49 AWAT) Page 2 added. Image captured from scanner. (11:49 AWAT) *SUPPLY CHARGE SHEET: Image captured from scanner. (11:58 ER) ADMIN (12:16 LHOD) DIGITAL SIGNATURE: MD Fink Lefayne. RESULTS &a-1R&a+25V*p+0X*l0838V*c202B*c15G*c2P*p-0X&a-25V&a+1R Name: Morgan Gage : 1925 M89 MedRec: [id number] AcctNum: [id number] Prepared: WedMay 14, 2016 12:28 by Interface Page 12 of 15 pMD [facility] EMERGENCY RECORD LABORATORY: CBC with Differential Collection DT: WedMay 14, 2016 10:28, *White Blood Cell (WBC) Count 13.5 - H thou/uL, Range (4.8-10.8), *Red Blood Cell (RBC) Count 3.39 - L mill/uL, Range (4.70-6.10), *Hemoglobin 10.7 - L g/dL, Range (14.0-18.0), *Hematocrit 31.4 - L %, Range (42.0-52.0), Mean Corpuscular Volume 92.5 fl, Range (80.0-94.0), *Mean Corpuscular Hemoglobin 31.5 - H pg, Range (27.0-31.0), Mean Corpuscular HGB CONC 34.0 g/dL, Range (32.0-36.0), RBC Distribution Width 13.2 %, Range (11.5-14.5), Platelet Count 271 thou/uL, Range (130-400), *Mean Platelet Volume 6.1 - L fL, Range (7.4-10.4), *%Neutrophils 87.8 - H %, Range (42.0-75.0), *%Lymphocytes 6.6 - L %, Range (21.0-51.0), %Monocytes 5.3 %, Range (0.0-10.0), %Eosinophils 0.1 %, Range (0.0-10.0), %Basophils 0.3 %, Range (0.0-1.0), *#Neutrophils 11.9 - H thou/uL, Range (1.40-6.50), *#Lymphocytes 0.9 - L thou/uL, Range (1.20-3.40), *#Monocytes 0.7 - H thou/uL, Range (0.11-0.59), #Eosinphils 0.0 thou/uL, Range (0.0-0.7), #Basophils 0.0 thou/uL, Range (0.0-0.2). (10:37 LHOD) Lactic Acid Collection DT: WedMay 14, 2016 10:28, *Lactic Acid 4.0 - H mmol/L, Range (0.5-2.2). (10:48 LHOD) Cardiac Profile w/CKMB & TropI Collection DT: WedMay 14, 2016 10:32, CKMB 0.4 ng/mL, Range (0-6.6), Troponin I 0.012 ng/mL, Range (< 0.028), Reference Range , 0.00 - 0.028 ng/mL Negative 0.029 - 0.29 ng/mL , Indeterminate Greater or Equal to 0.3 ng/mL Strongly suggests [place] , . (10:57 LHOD) Comprehensive Metabolic Panel Collection DT: WedMay 14, 2016 10:28, *Sodium 146 - H mmol/L, Range (136-145), Potassium 4.4 mmol/L, Range (3.5-5.1), Chloride 104 mmol/L, Range (98-107), Carbon Dioxide 27 mmol/L, Range (23-31), Anion Gap 19 mmol/L, Range (10-20), *BUN (Urea Nitrogen) 87 - H mg/dL, Range (8.4-25.7), *Creatinine 1.35 - H mg/dL, Range (0.7-1.3), Estimated GFR-MDRD 50 , Reference Range for Estimated GFR: Greater than 90, mL/min/1.73 m2 NOTE: The MDRD equation has not been validated for use, with the elderly (over 70 years of age), women, patients &a-1R&a+25V*p+0X*t2994Q*c202B*c15G*c2P*p-0X&a-25V&a+1R Name: Morgan Gage : 1925 M89 MedRec: [id number] AcctNum: [id number] Prepared: WedMay 14, 2016 12:28 by Interface Page 13 of 15 pMD [facility] EMERGENCY RECORD with, serious comorbid condition or persons with extremes of body size, muscle, mass, or nutritional status. , *Glucose 161 - H mg/dL, Range (83-110), Calcium 9.4 mg/dL, Range (7.8-10.44), Bilirubin, Total 0.6 mg/dL, Range (0.2-1.2), *Protein, Total 5.3 - L g/dL, Range (5.8-8.1), NOTE: Plasma values are generally 0.3 to 0.5 g/dL higher than serum values, due to the presence of fibrinogen. , *Albumin 2.9 - L g/dL, Range (3.4-4.8), Globulin 2.4 g/dL, Range (2.4-3.5), Alb/Glob Ratio 1.2 g/dL, Range (1.2-2.2), Alkaline Phosphatase 44 U/L, Range (40-150), AST (SGOT) 24 U/L, Range (5-34), ALT (SGPT) 20 U/L, Range (0-55). (10:57 LHOD) PTT Collection DT: WedMay 14, 2016 10:47, See comment below , Anticoagulant? NONE Medical Necessity SUSPECT COAGULOPATHY . (11:07 LHOD) Protime with INR Collection DT: WedMay 14, 2016 10:47, See comment below , Anticoagulant? NONE Medical Necessity SUSPECT COAGULOPATHY , *Prothrombin Time 17.3 - H SEC, Range (12.0-14.7), INR-International Normal Ratio 1.4 , ATTENTION: READ CAREFULLY , The, recommended therapeutic ranges for oral anticoagulant treatments are: , , Low Intensity: 1.5 - 2.0 Moderate Intensity: 2.0, - 3.0 High Intensity (1): 2.5 - 3.5 High, Intensity (2): 3.0 - 4.0 CRITICAL: >, 4.0 . (11:07 OD) Urine Microscopic Collection DT: Vertio May 14, 2016 11:36, RBC/HPF 0-3 HPF, Range (0-3), *WBC/HPF 7-10 - H HPF, Range (0-3), *Squamous Epithelial 4-6 - H HPF, Range (0-3), *Bacteria/HPF 1+ - H HPF, Range (None Seen), *Yeast-All Forms 1+ - H HPF, Range (None Seen). (11:41 [facility]) Urinalysis w/ Rflx Microscopic Collection DT: Verito May 14, 2016 11:36, Color Yellow , Range (Yellow), Clarity Hazy , Range (Clear), Specific [place], Urine 1.020 , Range (1.005-1.030), pH, Urine 5.5 , Range (5.0-9.0), *Leukocyte Small - H , Range (Negative), Nitrite Negative , Range (Negative), &a-1R&a+25V*p+0X*i3415U*c202B*c15G*c2P*p-0X&a-25V&a+1R Name: Morgan Gage : 1925 M89 MedRec: [id number] AcctNum: [id number] Prepared: WedMay 14, 2016 12:28 by Interface Page 14 of 15 pMD [facility] EMERGENCY RECORD Protein, Urine (Dipstick) Negative mg/dL, Range (Neg-Trace), Glucose, Urine (Dipstick) Negative mg/dL, Range (Negative), Ketone, Urine Negative mg/dL, Range (Negative), Urobilinogen 0.2 mg/dL, Range (0.2-1.0), Bilirubin Negative , Range (Negative), *Blood, Urine Trace - H , Range (Negative). (11:41 [facility]) PTT Collection DT: WedMay 14, 2016 10:47, See comment below , Anticoagulant? NONE Medical Necessity SUSPECT COAGULOPATHY , PTT 24.1 SEC, Range (22.9-36.1). (11:45 LHOD) Protime with INR Collection DT: WedMay 14, 2016 10:47, See comment below , Anticoagulant? NONE Medical Necessity SUSPECT COAGULOPATHY , *Prothrombin Time 17.3 - H SEC, Range (12.0-14.7), INR-International Normal Ratio 1.4 , ATTENTION: READ CAREFULLY , The, recommended therapeutic ranges for oral anticoagulant treatments are: , , Low Intensity: 1.5 - 2.0 Moderate Intensity: 2.0, - 3.0 High Intensity (1): 2.5 - 3.5 High, Intensity (2): 3.0 - 4.0 CRITICAL: >, 4.0 . (11:45 LHOD) [place]: ERINT=TANA Mayen, Brian CJEF=TANA Muniz, [place] ER=Marycarmen Moore=ABBY Rodriguez Julia LHOD=MD Gaston, Sherif &a-1R&a+25V*p+0X*y7459H*c202B*c15G*c2P*p-0X&a-25V&a+1R Name: Morgan Gage : 1925 M89 MedRec: [id number] AcctNum: [id number] Prepared: Verito May 14, 2016 12:28 by Interface Page 15 of 15 pMD MTDD
== END 2016-05-14 11:47 | disposition short-term general hospital (02) ==
LOC: MADERS 09:29
DX: K92.2 Gastrointestinal hemorrhage, unspecified (principal); I48.91 Unspecified atrial fibrillation; D64.9 Anemia, unspecified; E87.2 Acidosis; N28.9 Disorder of kidney and ureter, unspecified; Z79.82 Long term (current) use of aspirin; Z79.899 Other long term (current) drug therapy; Z86.73 Personal history of transient ischemic attack (TIA), and cerebral infarction without residual deficits
CPT/HCPCS: 36415; 51703; 71010; 74022; 80053; 81003; 81015; 82553; 83605; 84484; 85025; 85610; 85730; 87040; 87086; 93005; 96361; 96365; 96375; C9113; J2405; J7050

== ENCOUNTER 2016-06-04 13:36 | Outpatient (CLI) | payer MEDICARE, OTHER ==
[2016-06-04 13:53] LABS: ALT (SGPT) 11 U/L (0-55); AST (SGOT) 17 U/L (5-34); Albumin 2.9 g/dL (3.4-4.8); Alkaline Phosphatase 100 U/L (40-150); Anion Gap 12 mmol/L (10-20); BUN (Urea Nitrogen) 16 mg/dL (8.4-25.7); Bilirubin, Total 1.1 mg/dL (0.2-1.2); Calc. Creatinine Clearance 0 mL/min (70-130); Calcium 8.4 mg/dL (7.8-10.44); Carbon Dioxide 34 mmol/L (23-31); Chloride 96 mmol/L (98-107); Estimated GFR-MDRD 56; Globulin 2.4 g/dL (2.4-3.5); Glucose 136 mg/dL (83-110); Potassium 3.3 mmol/L (3.5-5.1); Protein, Total 5.3 g/dL (5.8-8.1); Sodium 139 mmol/L (136-145)
[2016-06-04 13:59] LABS: Hemoglobin 11.6 g/dL (14.0-18.0); Mean Corpuscular HGB CONC 32.3 g/dL (32.0-36.0); Mean Corpuscular Volume 92.8 fl (80.0-94.0); Platelet Count 302 thou/uL (130-400); RBC Distribution Width 14.6 % (11.5-14.5); Red Blood Cell (RBC) Count 3.87 mill/uL (4.70-6.10); White Blood Cell (WBC) Count 8.2 thou/uL (4.8-10.8)
== END 2016-06-04 13:37 | disposition home or self-care (01) ==
LOC: MADLAB 13:36
PROVIDERS: ATTEND Urology
DX: I10 Essential (primary) hypertension (principal); D64.9 Anemia, unspecified; K25.9 Gastric ulcer, unspecified as acute or chronic, without hemorrhage or perforation; R54 Age-related physical debility
CPT/HCPCS: 36415; 80053; 85027

== ENCOUNTER 2016-07-10 11:39 | Outpatient (CLI) | payer MEDICARE, OTHER ==
[2016-07-10 12:39] LABS: Anion Gap 12 mmol/L (10-20); BUN (Urea Nitrogen) 15 mg/dL (8.4-25.7); Calc. Creatinine Clearance 0 mL/min (70-130); Calcium 8.6 mg/dL (7.8-10.44); Carbon Dioxide 20 mmol/L (23-31); Chloride 109 mmol/L (98-107); Estimated GFR-MDRD 62; Glucose 97 mg/dL (83-110); Potassium 4.7 mmol/L (3.5-5.1); Sodium 136 mmol/L (136-145)
== END 2016-07-10 11:40 | disposition home or self-care (01) ==
LOC: MADLAB 11:39
PROVIDERS: ATTEND Internal Medicine
DX: E87.6 Hypokalemia (principal)
CPT/HCPCS: 36415; 80048

== ENCOUNTER 2016-07-23 11:29 | Outpatient (CLI) | payer MEDICARE, OTHER | END 2016-07-23 11:30 | disposition home or self-care (01) | LOC: MADLAB 11:29 | PROVIDERS: ATTEND Internal Medicine Gastroenterology | DX: R19.8 Other specified symptoms and signs involving the digestive system and abdomen (principal) | CPT/HCPCS: 36415; 87324; 87449 ==

== ENCOUNTER 2016-11-16 12:14 | Outpatient (CLI) | payer MEDICARE, OTHER | END 2016-11-16 12:15 | disposition home or self-care (01) | LOC: MADLAB 12:14 | PROVIDERS: ATTEND Internal Medicine Pulmonary Disease | DX: R91.1 Solitary pulmonary nodule (principal) | CPT/HCPCS: 36415; 82565 ==